=== PATIENT | male | born 1950 | race Caucasian/White ===

== ENCOUNTER → 2018-12-21 10:37 | Outpatient (CLI) | payer MEDICARE, OTHER, SELFPAY ==
[2013-10-23 08:40] VITALS: BMI 20.9
[2018-12-21 12:06] LABS: PSA,Total - Annual Screen 0.29 ng/mL (0.00-4.00)
== END ==
PROVIDERS: Family Provider Family Medicine; PCP Family Medicine; Referring Provider Nurse Practitioner Adult Health; Visit Provider Nurse Practitioner Adult Health
DX: Z12.5 Encounter for screening for malignant neoplasm of prostate (principal)
CPT/HCPCS: 36415; 84153; G0103

== ENCOUNTER → 2022-09-15 | Outpatient (CLI) | payer MEDICARE, OTHER, SELFPAY ==
[2022-09-15 13:06] LABS: PSA,Total - Annual Screen 0.14 ng/mL (0.00-4.00)
== END | disposition home or self-care (01) ==
LOC: LAB 11:20
PROVIDERS: Visit Provider Registered Nurse
DX: Z12.5 Encounter for screening for malignant neoplasm of prostate (principal)
CPT/HCPCS: 36415; 84153; G0103

== ENCOUNTER → 2023-10-19 | Outpatient (CLI) | payer MEDICARE, OTHER, SELFPAY ==
[2023-10-19 12:10] LABS: PSA,Total - Annual Screen 0.14 ng/mL (0.00-4.00)
== END | disposition home or self-care (01) ==
LOC: LAB 11:05
PROVIDERS: Referring Provider Nurse Practitioner; Visit Provider Nurse Practitioner
DX: Z12.5 Encounter for screening for malignant neoplasm of prostate (principal)
CPT/HCPCS: 36415; 84153; G0103

== ENCOUNTER → 2024-12-13 | Outpatient (CLI) | payer MEDICARE, OTHER, SELFPAY | END | disposition home or self-care (01) | LOC: LAB 10:22 | PROVIDERS: Referring Provider Urology; Visit Provider Urology | DX: R30.0 Dysuria (principal) | CPT/HCPCS: 87086 ==

== ENCOUNTER → 2025-05-18 | Outpatient (CLI) | payer MEDICARE, OTHER, SELFPAY ==
[2025-05-18 15:47] LABS: PTHIN 24 pg/mL (11-61)
[2025-05-18 16:10] LABS: Calcium 8.9 mg/dL (7.6-11.0); T3 Total - Triiodothyronine 1.25 ng/mL (0.80-2.00)
== END | disposition home or self-care (01) ==
LOC: MTLAB 13:07
PROVIDERS: Referring Provider Dermatology Pediatric Dermatology; Visit Provider Dermatology Pediatric Dermatology
DX: L80 Vitiligo (principal)
CPT/HCPCS: 36415; 82310; 83970; 84439; 84443; 84480

== ENCOUNTER 2025-05-30 22:03 | Emergency (ER) | payer MEDICARE, OTHER, SELFPAY ==
--- NOTE | 2025-05-30 11:49 | CT_ITS ---
PROCEDURE: ABDOMEN/PELVIS WITHOUT CONT 05/30/2025 REASON FOR EXAM: PAIN TECHNIQUE: Procedure Code: CTABDPEL Modality: CT Procedure: ABDOMEN/PELVIS WITHOUT CONT Noncontrast technique limits evaluation of the abdominal and pelvic viscera. Coronal and Sagittal reconstruction series were provided. One or more dose reduction techniques were used (e.g., Automated exposure control, adjustment of the mA and/or kV according to patient size, use of iterative reconstruction technique). RADIATION DOSE SUMMARY: CTDlvol: 6.04 mGy DLP: 297 mGycm COMPARISON: None. FINDINGS: Diffuse thickening of the bladder. Chronic bladder outlet obstruction versus mild cystitis. Mild prostatomegaly. Scattered prostatic calcifications. Mild bilateral basilar atelectatic pulmonary changes. Calcified atheromatous plaques of the aorta and iliac arteries. 3 mm right renal nonobstructing stone. Normal unenhanced liver. Normal gallbladder and extrahepatic biliary system. Normal unenhanced spleen. Normal pancreas. Normal bilateral adrenal glands. Normal size of the right kidney. There is no right renal mass. There is no right hydronephrosis. Normal visualized right ureter. Normal size of the left kidney. There is no left renal mass. There are no left renal calculi. There is no left hydronephrosis. Normal visualized left ureter. Normal visualized stomach. Normal small intestine. Normal colon. The appendix is visualized and appears normal. There is no demonstrated peritoneal fluid. Calcified atheromatous plaques of the abdominal aorta. Normal inferior vena cava. Normal retroperitoneum. There is no pelvic mass lesion or lymphadenopathy. There is no pelvic fluid. Normal abdominal wall. Mild diffuse spondylosis. CT/Abdomen/Pelvis without Cont IMPRESSION: Diffuse thickening of the bladder. Chronic bladder outlet obstruction versus mi ld cystitis. Mild prostatomegaly. Scattered prostatic calcifications. Mild bilateral basilar atelectatic pulmonary changes. Calcified atheromatous plaques of the aorta and iliac arteries. 3 mm right renal nonobstructing stone. Reading Location: [place] [id number]
[2025-05-30 22:04] VITALS: BP 128/74; PULSE 75; RESP 18; TEMP 36.8; O2SAT 99; BMI 19.4
--- NOTE | 2025-05-30 22:43 | ED.VIS.BACK ---
HPI History of Present Illness Chief Complaint: Back Detail of Chief Complaint: Left back pain. Intermittent for a month. Informant: patient and spouse/S.O. Onset/Context/Timing Onset: Weeks Context: Gradual Onset Chronic pain exacerbated by: No trauma. No back history. Timing: Intermittent Quality: Dull and Aching Current Severity: Mild Maximum Severity: Mild Worsened by: improves with Nothing Associated Symptoms Associated Symptoms: Negative for Numbness, Tingling, Radiation to Right Leg, Radiation to Left Leg, Fever, Abdominal Pain, Dysuria, Unable to Ambulate, Unable to Transfer, Urinary Retention, Urinary Incontinence, Constipation or Fecal Incontinence Narrative Narrative: 74-year-old male history of prior kidney stone. Complaining of left back pain around the left CVA area. Denies any fall injury or trauma. Has been intermittent for a month. Denies any discharge urinary or hematuria. Took a Tylenol several hours ago said his pains under control currently. No change with movement. Denies any type of injury. No prior back surgery. Prior similar symptoms: No Recent Illness/Hospitalization: [facility] Medical History (Updated 05/31/25 @ 02:[address] Harsh Eldridge MD) Age related osteoporosis Injection administered Home Medications ?Medication ?Instructions ?Recorded ?Last Taken ?Type dutasteride 0.5 mg capsule 0.5 mg PO DAILY 05/30/25 Unknown History pantoprazole 40 mg tablet,delayed 40 mg PO BID 05/30/25 Unknown History release tadalafil 5 mg tablet 5 mg PO DAILY 05/30/25 Unknown History Allergy/AdvReac Type Severity Reaction Status Date / Time Penicillins Allergy Rash Verified 05/30/25 22:06 Social History Smoking Status: Never smoker ROS ROS ED ROS Narrative Denies recent illness. Constitutional Constitutional ED: Denies chills or fever(s) Eyes Eyes: Denies blurry vision ENT ENT ED: Denies ear pain Cardiovascular Cardiovascular: Denies chest pain Respiratory/Chest Respiratory/Chest: Denies dyspnea Gastrointestinal Gastrointestinal: Denies abdominal pain Genitourinary Genitourinary ED: Denies dysuria or hematuria Musculoskeletal Musculoskeletal: Reports back pain and other Details: Left lateral back pain ; Denies arthralgias Integumentary Denies abscess or Abrasions Neurologic Neurologic: Denies headache(s) Psychiatric Psychiatric: Denies anxiety or depression Endocrine Endocrinology: Denies cold intolerance or heat intolerance Hematologic/Lymphatic Hematologic/Lymphatic: Denies easy bleeding, easy bruising or lymphadenopathy Allergic/Immunologic Allergic/Immunologic ED: Denies mouth swelling, tongue swelling or urticaria EXAM Physical Exam Narrative Exam Narrative: Well-appearing 74-year-old male. Seated in the chair. beside him. Vital signs are stable afebrile. No acute distress. H EENT exam pupils are round react to light. Moist mutes membranes. Neck nontender. No lymphadenopathy. Back no reproducible tenderness to palpation of his back no ecchymosis or bruising. No rashes. He describes the pain at the left CVA area. But there is no reproducible pain. Lungs clear to auscultation. Heart regular rhythm no murmur. Abdomen is soft and nontender. No peritoneal signs. Moving all 4 extremities. Nontender no edema. Normal strength and range of motion. He is awake and alert. Answering questions following commands. Benign exam. Const Vital Signs: 05/30/25 22:04 05/31/25 00:00 Temperature 98.2 F Temperature Source Oral Pulse Rate 75 72 Respiratory Rate 18 18 Blood Pressure 128/74 H 98/84 H Blood Pressure Mean 92 88 Pulse Ox 99 99 Oxygen Delivery Method Room Air Room Air MDM MDM MDM Narrative Medical decision making narrative: 74-year-old male with left flank/back pain. He is concerned it may be a kidney stone. He has no reproducible pain or back history. CAT scan and labs will be obtained with a urinalysis. He did not want anything for pain. Repeat exam patient is doing well at 1:27 AM. Sodium is only 126 that was unexpected. He does not have any old labs available for comparison. I will have a another sodium level resent to check that to make sure is not erroneous. Awaiting his CAT scan result. Repeat exam patient is doing well. CAT scan returned. I did repeat the sodium and the second sodium level was 124. Patient has no symptoms of hyponatremia. I told him that salt to his food. And follow-up in a week to have his sodium rechecked. Return if he is feeling worse. Flank pain uncertain etiology. And hyponatremia. Patient be treated with 1 L normal saline prior to discharge. I discussed with the hospitalist given is not have any other symptoms neither they nor I feel that he needs to be admitted. Patient be instructed with close follow-up to have his sodium rechecked. History & Record Review Discussion w/independent historian: Patient and Family Additional record(s) reviewed:: Prior labs Lab Data Attestation: I reviewed the patient's lab results. Lab results narrative: CBC shows white 11.3 H&H 14 and 42. Platelets 175. Electrolytes show sodium 126. Gap 13. BUN and creatinine of 10 and 0.7. Glucose 118. UA shows ketones otherwise no signs of infection. No white or red cells. No nitrates. Only 1+ bacteria. Labs: Laboratory Results - last 24 hr 05/30/25 05/31/25 05/31/25 23:05 00:15 01:31 WBC 11.3 H RBC 4.74 Hgb 14.9 Hct 42.5 MCV 89.7 MCH 31.4 MCHC 35.1 RDW Std Deviation 38.2 RDW Coeff of Di 11.6 Plt Count 175 MPV 12.2 H Immature Gran % (Auto) 0.200 Neut % (Auto) 80.4 H Lymph % (Auto) 12.1 L [place] % (Auto) 6.1 Eos % (Auto) 0.8 Baso % (Auto) 0.4 Absolute Neuts (auto) 9.1 H Absolute Lymphs (auto) 1.37 Nucleated RBC % 0 Sodium 126 L 124 L Potassium 4.1 Chloride 93 L Carbon Dioxide 20.8 L Anion Gap 13 BUN 10 Creatinine 0.74 Estim Creat Clear Calc 67.54 Est GFR (MDRD) Non-Af 96 BUN/Creatinine Ratio 14.0 Glucose 118 H Calcium 8.9 Urine Color Yellow Urine Clarity Clear Urine pH 6.0 Ur Specific [place] 1.020 Urine Protein 15 H Urine Glucose (UA) Normal Urine Ketones 150 A* Urine Occult Blood Negative Urine Nitrite Negative Urine Bilirubin Negative Urine Urobilinogen Normal Ur Leukocyte Esterase Negative Urine RBC 0 SEEN Urine WBC 0 SEEN Ur Squamous Epith Cells 0 SEEN Urine Bacteria 1+ Urine Mucus 1+ Radiography Diagnostic Testing: Clinical Impression(s) from Imaging Studies Abdomen/Pelvis CT 05/30/25 11:49 IMPRESSION: Diffuse thickening of the bladder. Chronic bladder outlet obstruction versus mild cystitis. Mild prostatomegaly. Scattered prostatic calcifications. Mild bilateral basilar atelectatic pulmonary changes. Calcified atheromatous plaques of the aorta and iliac arteries. 3 mm right renal nonobstructing stone. [id number] T[facility] Chief Complaint: Back Other Complaint: Flank Pain ED Provider: Harsh Eldridge Dx/Rx/DC Orders Clinical Impression: Acute flank pain, Acute hyponatremia Instructions: ED Flank Pain with Uncertain Cause, ED Hyponatremia Prescriptions: No Action dutasteride 0.5 mg capsule 0.5 mg PO DAILY tadalafil 5 mg tablet 5 mg PO DAILY pantoprazole 40 mg tablet,delayed release (DR/EC) 40 mg PO BID Primary Care Provider: Jose Hare Referrals: Jose Hare DO [Primary Care Provider, Medical] - 1 Week Activity Restrictions/Additional Instructions: Call follow-up with your doctor early next week. Need to have your sodium rechecked today it was 124 it should be higher than that. Add some salt to your food. And then have your sodium level rechecked next week. If for any reason you are feeling a lot worse return. We do not have any specific cause for your flank pain. There was no acute kidney stone or urinary tract infection. Print Language: Salvad[place] Disposition Disposition: Home, Self Care
[2025-05-30 23:20] LABS: Hematocrit 42.5 % (40-54); Hemoglobin 14.9 g/dL (13.0-16.5); Immature Granulocytes Count 0.020 X10^3/uL (0.0-0.0); Mean Corp Hgb Conc 35.1 g/dL (32-36); Mean Corpuscular Volume 89.7 fL (80-94); Mean Platelet Vol. 12.2 fl (6.2-12.0); NRBC Flagged by Analyzer 0 % (0-5); Platelet Count 175 K/mm3 (150-450); RBC Distribution Width CV 11.6 % (11.6-14.6); RBC Distribution Width SD 38.2 fl (35.1-43.9); Red Blood Count 4.74 M/mm3 (4.6-6.2); White Blood Count 11.3 K/mm3 (4.4-11.0)
[2025-05-30 23:40] LABS: Anion Gap 13 (5-15); BUN 10 mg/dL (4-19); BUN/Creat Ratio 14.0 RATIO (10-20); Calcium,Total 8.9 mg/dL (7.6-11.0); Carbon Dioxide 20.8 mmol/L (21.0-32.0); Chloride 93 mmol/L (98-108); Estimated Creatinine Clearance 67.54 ml/min (50-250); Glucose 118 mg/dL (70-99); Potassium 4.1 mmol/L (3.3-5.1)
[2025-05-31] VITALS: BP 98/84; PULSE 72; RESP 18; O2SAT 99
[2025-05-31 00:21] LABS: Red Blood Cells-Urine 0 SEEN /hpf (0-5); Squamous Epithelial Cells - UA 0 SEEN /hpf (0-5)
[2025-05-31 00:25] LABS: Color, Urine Yellow (Yellow); Glucose, Dipstick Normal (Normal); Leukocyte Esterase-Dipstick Negative /ul (Negative); Nitrite-Dipstick Negative (Negative); Occult Blood-Urine Negative /ul (Negative); Protein-Dipstick 15 mg/dl (Negative); Specific Gravity, Urine 1.020 (1.002-1.030); Urine Bilirubin Dipstick Negative (Negative)
[2025-05-31 00:30] LABS: Ketone-Dipstick 150 mg/dl (Negative)
[2025-05-31 00:37] LABS: Mucous, Urine 1+ /hpf (<or=2+)
[2025-05-31 02:00] VITALS: BP 110/58; PULSE 70; RESP 16; TEMP 36.6; O2SAT 100; O2SAT 99
[2025-05-31] MEDS: 0.9% Normal Saline (1000mL) 1,000 ML 999 ML IV (02:19)
== END 2025-05-31 03:20 | disposition home or self-care (01) ==
PROVIDERS: Emergency Provider Emergency Medicine; Visit Provider Emergency Medicine
DX: R10.A2 Flank pain, left side (principal); E87.1 Hypo-osmolality and hyponatremia
CPT/HCPCS: 74176; 80048; 81001; 84295; 85025; 99284; A4216